=== PATIENT | male | born 1965 | race Asian ===

== ENCOUNTER 2020-10-18 23:53 | Inpatient (IN) | payer OTHER ==
[2020-10-19] MEDS ORDERED: LACTATED RINGERS SOLUTION 1000 ML INFUS.BAG IV ONE (01:19)
[2020-10-19 02:01] LABS: POTASSIUM 3.9 mmol/L (3.5-5.1)
[2020-10-19 02:03] LABS: BLOOD UREA NITROGEN 11.8 mg/dL (7-18); CALCIUM 8.4 mg/dL (8.5-10.1); CO2 28 mmol/L (21-32)
[2020-10-19 02:05] LABS: GLUCOSE,RANDOM 262 mg/dL (74-106)
[2020-10-19 02:06] LABS: BILIRUBIN,DIRECT 0.2 mg/dL (0.0-0.2); CREATININE 0.9 mg/dL (0.55-1.3); SGOT/AST 33 U/L (15-37); SGPT/ALT 38 U/L (13-61)
[2020-10-19 02:08] LABS: BILIRUBIN,TOTAL 0.5 mg/dL (0.2-1)
[2020-10-19 02:09] LABS: ALK PHOS 63 U/L (45-117)
[2020-10-19 02:11] LABS: LDH 446 U/L (87-246)
[2020-10-19 02:19] LABS: INR 1.18 (0.83-1.09); PROTHROMBIN TIME (PATIENT) 14.4 SEC (9.7-13.0)
[2020-10-19 02:21] LABS: ACTIVATED PTT 31.6 SECONDS (25.2-36.5)
[2020-10-19 02:23] LABS: ANION GAP 6 MMOL/L (8-16); CHLORIDE 102 mmol/L (98-107); SODIUM 136 mmol/L (136-145)
[2020-10-19] MEDS ORDERED: DEXAMETHASONE SOD PHOSPHATE 4 MG/1 ML VIAL IVPUSH ONE (02:30)
[2020-10-19] MEDS ORDERED: DEXAMETHASONE SOD PHOSPHATE 10 MG/1 ML VIAL ONE (02:47)
[2020-10-19] MEDS ORDERED: LORazepam 2 MG/ML SDV VIAL IVPUSH ONE (03:58)
[2020-10-19] MEDS ORDERED: LORazepam 2 MG/ML SDV VIAL ONE (04:15)
[2020-10-19] MEDS: guaiFENesin/D-M SUGAR-FREE/ACLHOL-FREE 118 ML BOTTLE PO SCH ×5 (04:47→21:01)
[2020-10-19] MEDS: LACTATED RINGERS SOLUTION 1,000 ML/1,000 ML INFUS.BAG IV SCH ×2 (04:52→19:13)
[2020-10-19] MEDS ORDERED: INSULIN SLIDING SCALE (NOVOLOG) 1 VIAL SQ SCH (07:00)
[2020-10-19 08:02] LABS: BASO % 0.6 % (0-2.0); HEMATOCRIT 38.3 % (35.4-49); HEMOGLOBIN 13.3 GM/dL (11.7-16.9); LYMPH % 7.6 % (8-40); MCH 29.2 pg (25.7-33.7); MCHC 34.8 g/dl (32.0-35.9); MEAN CELL VOLUME 83.8 fl (80-96); MEAN PLT VOLUME 8.3 fl (7.5-11.1); MONO % 3.5 % (3.8-10.2); NEUT % 88.3 % (42.8-82.8); PLATELET COUNT 282 K/MM3 (134-434); RBC 4.58 M/mm3 (4.00-5.60); RDW 12.6 % (11.9-15.9); WHITE BLOOD COUNT 8.2 K/mm3 (4.0-10.0)
[2020-10-19 08:19] LABS: HEMATOCRIT 41.9 % (35.4-49); LYMPH % 10.7 % (8-40); MCH 28.6 pg (25.7-33.7); MCHC 33.5 g/dl (32.0-35.9); MEAN CELL VOLUME 85.4 fl (80-96); MEAN PLT VOLUME 8.6 fl (7.5-11.1); MONO % 6.4 % (3.8-10.2); NEUT % 82.5 % (42.8-82.8); PLATELET COUNT 281 K/MM3 (134-434); RDW 12.8 % (11.9-15.9); WHITE BLOOD COUNT 8.5 K/mm3 (4.0-10.0)
[2020-10-19 08:20] LABS: BASO % 0.4 % (0-2.0)
[2020-10-19 08:21] LABS: POTASSIUM 3.8 mmol/L (3.5-5.1)
[2020-10-19 08:24] LABS: ALBUMIN 2.8 g/dl (3.4-5.0); BLOOD UREA NITROGEN 11.4 mg/dL (7-18); CALCIUM 8.1 mg/dL (8.5-10.1); MAGNESIUM 1.8 mg/dL (1.8-2.4)
[2020-10-19 08:28] LABS: CREATININE 0.7 mg/dL (0.55-1.3); PHOSPHOROUS 2.6 mg/dL (2.5-4.9)
[2020-10-19 08:29] LABS: BILIRUBIN,TOTAL 0.6 mg/dL (0.2-1); TOT PROT 6.5 g/dl (6.4-8.2)
[2020-10-19] MEDS ORDERED: ASCORBIC ACID 500 MG TABLET (FP) ONE (09:37)
[2020-10-19] MEDS ORDERED: ZINC SULFATE 220 MG CAPSULE (FP) ONE (09:37)
[2020-10-19] MEDS ORDERED: DEXAMETHASONE SOD PHOSPHATE 4 MG/1 ML VIAL ONE (09:37)
[2020-10-19] MEDS ORDERED: amLODIPine BESYLATE 5 MG TABLET (FP) ONE (09:37)
[2020-10-19] MEDS ORDERED: FAMOTIDINE 20 MG TABLET ONE (09:37)
[2020-10-19] MEDS ORDERED: metoPROLOL SUCCINATE 25 MG TAB.SR.24H (FP) ONE (09:38)
[2020-10-19] MEDS ORDERED: LISINOPRIL 5 MG TABLET ONE (09:38)
[2020-10-19] MEDS ORDERED: ENOXAPARIN NA (PORCINE) 40 MG/0.4 ML DISP.SYRIN SQ ONE (09:38)
[2020-10-19] MEDS: INSULIN (LEVEMIR) 100 UNITS/ML UNITS SQ SCH ×2 (09:46→21:16)
[2020-10-19] MEDS: ZINC SULFATE 220 MG CAPSULE (FP) PO SCH (09:47)
[2020-10-19] MEDS: LISINOPRIL 5 MG TABLET PO SCH (09:47)
[2020-10-19] MEDS: FAMOTIDINE 20 MG TABLET PO SCH (09:47)
[2020-10-19] MEDS: ASCORBIC ACID 500 MG TABLET (FP) PO SCH (09:47)
[2020-10-19] MEDS: metoPROLOL SUCCINATE 25 MG TAB.SR.24H (FP) PO SCH (09:47)
[2020-10-19] MEDS: amLODIPine BESYLATE 5 MG TABLET (FP) PO SCH (09:47)
[2020-10-19] MEDS ORDERED: ENOXAPARIN NA (PORCINE) 40 MG/0.4 ML DISP.SYRIN SQ SCH ×2 (10:00→22:00)
[2020-10-19] MEDS ORDERED: DEXAMETHASONE 4 MG TABLET (FP) PO SCH (10:00)
[2020-10-19] MEDS: INSULIN SLIDING SCALE (NOVOLOG) 1 VIAL SQ SCH ×3 (11:48→21:17)
[2020-10-19] MEDS: BUDESONIDE/FORMETEROL FUMARATE 160/4.5 mcg INHALER IH SCH ×2 (14:10→22:34)
[2020-10-19] MEDS ORDERED: guaiFENesin/D-METHORPHAN HB 10 ML UNIT-DOSE CUPS PO PRN (14:51)
[2020-10-19 16:02] VITALS: BMI 31.4
[2020-10-19] MEDS: ALBUTEROL SO4 HFA INHALER IH SCH ×2 (16:26→21:07)
[2020-10-19 17:15] LABS: ARTERIAL BLD GAS O2 SATURATION 95.6 mmHg (95-98); ARTERIAL BLOOD GAS BASE EXCESS -0.4 mmol/L (-2-2); ARTERIAL BLOOD GAS PO2 74.2 mmHg (80-100); ARTERIAL BLOOD GAS pH 7.444 (7.350-7.450)
[2020-10-19 17:16] LABS: ALLENS TEST POSITIVE
[2020-10-19] MEDS ORDERED: PT OWN MED DRAWER 7, Y5N ONE ×2 (17:29→22:00)
[2020-10-19] MEDS ORDERED: INSULIN (NOVOLOG) ASPART 100 UNITS/ML 10ML VIAL ONE (18:30)
[2020-10-19] MEDS ORDERED: MELATONIN 5 MG TABLETS PO ONE (20:50)
[2020-10-19] MEDS ORDERED: BENZOCAINE/MENTH/CETYLPYRD CL 1 EACH LOZENGE MM ONE (20:52)
[2020-10-19] MEDS: ATORVASTATIN CA 20 MG TABLET (FP) PO SCH (21:10)
[2020-10-20] MEDS: guaiFENesin/D-M SUGAR-FREE/ACLHOL-FREE 118 ML BOTTLE PO SCH ×2 (01:19→03:27)
[2020-10-20] MEDS ORDERED: PT OWN MED DRAWER 7, Y5N ONE ×2 (03:22→09:18)
[2020-10-20] MEDS: BENZOCAINE/MENTH/CETYLPYRD CL 1 EACH LOZENGE MM PRN ×2 (03:36→17:58)
[2020-10-20] MEDS: LACTATED RINGERS SOLUTION 1,000 ML/1,000 ML INFUS.BAG IV SCH (06:16)
[2020-10-20] MEDS: INSULIN SLIDING SCALE (NOVOLOG) 1 VIAL SQ SCH ×4 (06:19→21:20)
[2020-10-20] MEDS: ALBUTEROL SO4 HFA INHALER IH SCH ×4 (09:11→21:22)
[2020-10-20 09:17] LABS: POTASSIUM 3.7 mmol/L (3.5-5.1)
[2020-10-20 09:19] LABS: CALCIUM 8.3 mg/dL (8.5-10.1)
[2020-10-20 09:20] LABS: ALBUMIN 2.6 g/dl (3.4-5.0); BLOOD UREA NITROGEN 15.1 mg/dL (7-18); MAGNESIUM 2.2 mg/dL (1.8-2.4)
[2020-10-20 09:22] LABS: CREATININE 0.7 mg/dL (0.55-1.3)
[2020-10-20 09:23] LABS: PHOSPHOROUS 3.1 mg/dL (2.5-4.9)
[2020-10-20 09:24] LABS: BILIRUBIN,TOTAL 0.4 mg/dL (0.2-1); TOT PROT 6.1 g/dl (6.4-8.2)
[2020-10-20 09:31] LABS: BASO % 0.1 % (0-2.0); HEMATOCRIT 38.8 % (35.4-49); HEMOGLOBIN 13.1 GM/dL (11.7-16.9); LYMPH % 6.7 % (8-40); MCH 28.7 pg (25.7-33.7); MCHC 33.8 g/dl (32.0-35.9); MEAN CELL VOLUME 85.1 fl (80-96); MEAN PLT VOLUME 8.4 fl (7.5-11.1); MONO % 6.4 % (3.8-10.2); NEUT % 86.8 % (42.8-82.8); PLATELET COUNT 327 K/MM3 (134-434); RBC 4.57 M/mm3 (4.00-5.60); RDW 12.9 % (11.9-15.9); WHITE BLOOD COUNT 13.7 K/mm3 (4.0-10.0)
[2020-10-20] MEDS: INSULIN (LEVEMIR) 100 UNITS/ML UNITS SQ SCH ×2 (09:37→21:21)
[2020-10-20] MEDS: metoPROLOL SUCCINATE 25 MG TAB.SR.24H (FP) PO SCH (09:38)
[2020-10-20] MEDS: amLODIPine BESYLATE 5 MG TABLET (FP) PO SCH (09:38)
[2020-10-20] MEDS: DEXAMETHASONE SOD PHOSPHATE 4 MG/1 ML VIAL IVPUSH SCH (09:38)
[2020-10-20] MEDS: LISINOPRIL 5 MG TABLET PO SCH (09:38)
[2020-10-20] MEDS: ASCORBIC ACID 500 MG TABLET (FP) PO SCH (09:38)
[2020-10-20] MEDS: ZINC SULFATE 220 MG CAPSULE (FP) PO SCH (09:38)
[2020-10-20] MEDS: FAMOTIDINE 20 MG TABLET PO SCH (09:38)
[2020-10-20] MEDS: ENOXAPARIN NA (PORCINE) 100 MG/1 ML DISP.SYRIN SQ SCH ×2 (09:38→21:22)
[2020-10-20] MEDS: BUDESONIDE/FORMETEROL FUMARATE 160/4.5 mcg INHALER IH SCH ×2 (09:39→21:37)
[2020-10-20 16:08] LABS: MYCOPLASMA PNEUMONIAE,IG G AB <100 U/mL (0-99); MYCOPLASMA PNEUMONIAE,IGM AB <770 U/mL (0-769)
[2020-10-20] MEDS: ATORVASTATIN CA 20 MG TABLET (FP) PO SCH (21:22)
[2020-10-20] MEDS: guaiFENesin 200 MG/10 ML 10 ML UNIT-DOSE CUPS PO PRN (21:29)
[2020-10-21] MEDS: INSULIN SLIDING SCALE (NOVOLOG) 1 VIAL SQ SCH ×4 (06:00→21:10)
[2020-10-21] MEDS: INSULIN (LEVEMIR) 100 UNITS/ML UNITS SQ SCH ×2 (06:01→21:05)
[2020-10-21 08:26] LABS: BASO % 0.2 % (0-2.0); HEMATOCRIT 39.2 % (35.4-49); HEMOGLOBIN 13.2 GM/dL (11.7-16.9); LYMPH % 12.1 % (8-40); MCH 28.7 pg (25.7-33.7); MCHC 33.8 g/dl (32.0-35.9); MEAN CELL VOLUME 84.9 fl (80-96); MEAN PLT VOLUME 8.2 fl (7.5-11.1); MONO % 6.6 % (3.8-10.2); NEUT % 81.1 % (42.8-82.8); PLATELET COUNT 373 K/MM3 (134-434); RBC 4.61 M/mm3 (4.00-5.60); RDW 12.8 % (11.9-15.9); WHITE BLOOD COUNT 11.1 K/mm3 (4.0-10.0)
[2020-10-21 08:42] LABS: POTASSIUM 3.7 mmol/L (3.5-5.1)
[2020-10-21 08:44] LABS: CALCIUM 8.4 mg/dL (8.5-10.1)
[2020-10-21 08:45] LABS: ALBUMIN 2.6 g/dl (3.4-5.0); BLOOD UREA NITROGEN 18.4 mg/dL (7-18)
[2020-10-21 08:48] LABS: CREATININE 0.7 mg/dL (0.55-1.3)
[2020-10-21 08:49] LABS: BILIRUBIN,TOTAL 0.4 mg/dL (0.2-1)
[2020-10-21] MEDS: ALBUTEROL SO4 HFA INHALER IH SCH ×4 (08:55→21:04)
[2020-10-21] MEDS ORDERED: INSULIN (NOVOLOG) ASPART 100 UNITS/ML 10ML VIAL ONE (10:42)
[2020-10-21] MEDS ORDERED: PT OWN MED DRAWER 7, Y5N ONE (10:44)
[2020-10-21] MEDS: DEXAMETHASONE SOD PHOSPHATE 4 MG/1 ML VIAL IVPUSH SCH (10:51)
[2020-10-21] MEDS: guaiFENesin 200 MG/10 ML 10 ML UNIT-DOSE CUPS PO PRN (10:52)
[2020-10-21] MEDS: LISINOPRIL 5 MG TABLET PO SCH (10:52)
[2020-10-21] MEDS: ZINC SULFATE 220 MG CAPSULE (FP) PO SCH (10:52)
[2020-10-21] MEDS: metoPROLOL SUCCINATE 25 MG TAB.SR.24H (FP) PO SCH (10:52)
[2020-10-21] MEDS: BUDESONIDE/FORMETEROL FUMARATE 160/4.5 mcg INHALER IH SCH ×2 (10:52→21:08)
[2020-10-21] MEDS: FAMOTIDINE 20 MG TABLET PO SCH (10:52)
[2020-10-21] MEDS: amLODIPine BESYLATE 5 MG TABLET (FP) PO SCH (10:52)
[2020-10-21] MEDS: ASCORBIC ACID 500 MG TABLET (FP) PO SCH (10:52)
[2020-10-21] MEDS: ENOXAPARIN NA (PORCINE) 100 MG/1 ML DISP.SYRIN SQ SCH ×2 (11:03→21:09)
[2020-10-21] MEDS ORDERED: guaiFENesin/D-M SUGAR-FREE/ACLHOL-FREE 118 ML BOTTLE PO PRN (12:30)
[2020-10-21] MEDS: ATORVASTATIN CA 20 MG TABLET (FP) PO SCH (21:05)
[2020-10-22] MEDS: INSULIN (LEVEMIR) 100 UNITS/ML UNITS SQ SCH ×3 (06:10→21:42)
[2020-10-22] MEDS: INSULIN SLIDING SCALE (NOVOLOG) 1 VIAL SQ SCH ×4 (06:10→21:07)
[2020-10-22 07:55] LABS: BASO % 0.1 % (0-2.0); HEMATOCRIT 38.8 % (35.4-49); HEMOGLOBIN 13.2 GM/dL (11.7-16.9); LYMPH % 16.5 % (8-40); MEAN CELL VOLUME 85.2 fl (80-96); MEAN PLT VOLUME 8.5 fl (7.5-11.1); MONO % 10.4 % (3.8-10.2); PLATELET COUNT 380 K/MM3 (134-434); RBC 4.55 M/mm3 (4.00-5.60); RDW 12.6 % (11.9-15.9); WHITE BLOOD COUNT 9.3 K/mm3 (4.0-10.0)
[2020-10-22 08:07] LABS: POTASSIUM 3.8 mmol/L (3.5-5.1)
[2020-10-22 08:43] LABS: ALBUMIN 2.7 g/dl (3.4-5.0); BILIRUBIN,TOTAL 0.4 mg/dL (0.2-1); BLOOD UREA NITROGEN 16.9 mg/dL (7-18); CALCIUM 8.1 mg/dL (8.5-10.1); CREATININE 0.6 mg/dL (0.55-1.3); TOT PROT 6.4 g/dl (6.4-8.2)
[2020-10-22] MEDS: ALBUTEROL SO4 HFA INHALER IH SCH ×4 (08:45→21:10)
[2020-10-22] MEDS ORDERED: PT OWN MED DRAWER 7, Y5N ONE (10:09)
[2020-10-22] MEDS: DEXAMETHASONE SOD PHOSPHATE 4 MG/1 ML VIAL IVPUSH SCH (10:14)
[2020-10-22] MEDS: amLODIPine BESYLATE 5 MG TABLET (FP) PO SCH (10:14)
[2020-10-22] MEDS: FAMOTIDINE 20 MG TABLET PO SCH (10:14)
[2020-10-22] MEDS: ASCORBIC ACID 500 MG TABLET (FP) PO SCH (10:14)
[2020-10-22] MEDS: ENOXAPARIN NA (PORCINE) 100 MG/1 ML DISP.SYRIN SQ SCH ×2 (10:14→21:10)
[2020-10-22] MEDS: LISINOPRIL 5 MG TABLET PO SCH (10:14)
[2020-10-22] MEDS: BUDESONIDE/FORMETEROL FUMARATE 160/4.5 mcg INHALER IH SCH ×2 (10:14→21:11)
[2020-10-22] MEDS: ZINC SULFATE 220 MG CAPSULE (FP) PO SCH (10:14)
[2020-10-22] MEDS: metoPROLOL SUCCINATE 25 MG TAB.SR.24H (FP) PO SCH (10:14)
[2020-10-22] MEDS: ATORVASTATIN CA 20 MG TABLET (FP) PO SCH (21:06)
[2020-10-23] MEDS: INSULIN (LEVEMIR) 100 UNITS/ML UNITS SQ SCH ×2 (06:19→22:41)
[2020-10-23] MEDS: INSULIN SLIDING SCALE (NOVOLOG) 1 VIAL SQ SCH ×4 (06:20→22:41)
[2020-10-23] MEDS ORDERED: PT OWN MED DRAWER 7, Y5N ONE (09:15)
[2020-10-23] MEDS: DEXAMETHASONE SOD PHOSPHATE 4 MG/1 ML VIAL IVPUSH SCH (09:25)
[2020-10-23] MEDS: ALBUTEROL SO4 HFA INHALER IH SCH ×4 (09:25→20:00)
[2020-10-23] MEDS: ASCORBIC ACID 500 MG TABLET (FP) PO SCH (09:26)
[2020-10-23] MEDS: ZINC SULFATE 220 MG CAPSULE (FP) PO SCH (09:26)
[2020-10-23] MEDS: amLODIPine BESYLATE 5 MG TABLET (FP) PO SCH (09:26)
[2020-10-23] MEDS: ENOXAPARIN NA (PORCINE) 100 MG/1 ML DISP.SYRIN SQ SCH ×2 (09:26→22:16)
[2020-10-23] MEDS: metoPROLOL SUCCINATE 25 MG TAB.SR.24H (FP) PO SCH (09:26)
[2020-10-23] MEDS: FAMOTIDINE 20 MG TABLET PO SCH (09:26)
[2020-10-23] MEDS: LISINOPRIL 5 MG TABLET PO SCH (09:26)
[2020-10-23] MEDS: BUDESONIDE/FORMETEROL FUMARATE 160/4.5 mcg INHALER IH SCH ×2 (09:26→22:19)
[2020-10-23 09:54] LABS: BASO % 0.2 % (0-2.0); EOS % 0.2 % (0-4.5); HEMATOCRIT 39.8 % (35.4-49); HEMOGLOBIN 13.4 GM/dL (11.7-16.9); LYMPH % 22.5 % (8-40); MCH 28.8 pg (25.7-33.7); MCHC 33.8 g/dl (32.0-35.9); MEAN CELL VOLUME 85.4 fl (80-96); MEAN PLT VOLUME 8.2 fl (7.5-11.1); MONO % 8.9 % (3.8-10.2); NEUT % 68.2 % (42.8-82.8); PLATELET COUNT 434 K/MM3 (134-434); RBC 4.66 M/mm3 (4.00-5.60); RDW 12.5 % (11.9-15.9)
[2020-10-23 10:32] LABS: CALCIUM 8.8 mg/dL (8.5-10.1)
[2020-10-23 10:33] LABS: BLOOD UREA NITROGEN 16.5 mg/dL (7-18)
[2020-10-23 10:36] LABS: CREATININE 0.7 mg/dL (0.55-1.3)
[2020-10-23 10:37] LABS: BILIRUBIN,TOTAL 0.5 mg/dL (0.2-1)
[2020-10-23 10:38] LABS: TOT PROT 6.7 g/dl (6.4-8.2)
[2020-10-23 10:44] LABS: POTASSIUM 4.1 mmol/L (3.5-5.1)
[2020-10-23] MEDS: ATORVASTATIN CA 20 MG TABLET (FP) PO SCH (22:14)
[2020-10-24] MEDS: INSULIN (LEVEMIR) 100 UNITS/ML UNITS SQ SCH ×2 (06:44→22:28)
[2020-10-24] MEDS: INSULIN SLIDING SCALE (NOVOLOG) 1 VIAL SQ SCH ×4 (06:45→22:33)
[2020-10-24] MEDS: ALBUTEROL SO4 HFA INHALER IH SCH ×4 (08:00→22:29)
[2020-10-24] MEDS ORDERED: PT OWN MED DRAWER 7, Y5N ONE (09:23)
[2020-10-24 09:41] LABS: BASO % 0.5 % (0-2.0); EOS % 0.5 % (0-4.5); HEMATOCRIT 40.3 % (35.4-49); HEMOGLOBIN 13.6 GM/dL (11.7-16.9); LYMPH % 26.9 % (8-40); MCH 28.6 pg (25.7-33.7); MCHC 33.7 g/dl (32.0-35.9); MEAN PLT VOLUME 8.4 fl (7.5-11.1); MONO % 9.3 % (3.8-10.2); NEUT % 62.8 % (42.8-82.8); PLATELET COUNT 458 K/MM3 (134-434); RBC 4.73 M/mm3 (4.00-5.60); RDW 12.4 % (11.9-15.9); WHITE BLOOD COUNT 10.1 K/mm3 (4.0-10.0)
[2020-10-24 10:03] LABS: CALCIUM 8.9 mg/dL (8.5-10.1)
[2020-10-24 10:04] LABS: ALBUMIN 3.2 g/dl (3.4-5.0); BLOOD UREA NITROGEN 16.4 mg/dL (7-18); MAGNESIUM 2.3 mg/dL (1.8-2.4)
[2020-10-24 10:06] LABS: CREATININE 0.7 mg/dL (0.55-1.3)
[2020-10-24 10:07] LABS: PHOSPHOROUS 3.2 mg/dL (2.5-4.9)
[2020-10-24 10:08] LABS: BILIRUBIN,TOTAL 0.6 mg/dL (0.2-1)
[2020-10-24] MEDS: DEXAMETHASONE SOD PHOSPHATE 4 MG/1 ML VIAL IVPUSH SCH (10:31)
[2020-10-24] MEDS: ENOXAPARIN NA (PORCINE) 100 MG/1 ML DISP.SYRIN SQ SCH ×2 (10:31→22:28)
[2020-10-24] MEDS: ZINC SULFATE 220 MG CAPSULE (FP) PO SCH (10:31)
[2020-10-24] MEDS: FAMOTIDINE 20 MG TABLET PO SCH (10:32)
[2020-10-24] MEDS: ASCORBIC ACID 500 MG TABLET (FP) PO SCH (10:32)
[2020-10-24] MEDS: amLODIPine BESYLATE 5 MG TABLET (FP) PO SCH (10:32)
[2020-10-24] MEDS: metoPROLOL SUCCINATE 25 MG TAB.SR.24H (FP) PO SCH (10:32)
[2020-10-24] MEDS: BUDESONIDE/FORMETEROL FUMARATE 160/4.5 mcg INHALER IH SCH ×2 (10:32→22:29)
[2020-10-24] MEDS: LISINOPRIL 5 MG TABLET PO SCH (10:32)
[2020-10-24] MEDS ORDERED: INSULIN (NOVOLOG) ASPART 100 UNITS/ML 10ML VIAL ONE (17:49)
[2020-10-24] MEDS: ATORVASTATIN CA 20 MG TABLET (FP) PO SCH (22:28)
[2020-10-25] MEDS: INSULIN SLIDING SCALE (NOVOLOG) 1 VIAL SQ SCH ×3 (06:30→16:31)
[2020-10-25] MEDS: INSULIN (LEVEMIR) 100 UNITS/ML UNITS SQ SCH (06:30)
[2020-10-25 08:49] LABS: BASO % 0.4 % (0-2.0); EOS % 0.5 % (0-4.5); HEMATOCRIT 40.3 % (35.4-49); HEMOGLOBIN 13.9 GM/dL (11.7-16.9); LYMPH % 23.5 % (8-40); MCH 29.3 pg (25.7-33.7); MCHC 34.6 g/dl (32.0-35.9); MEAN CELL VOLUME 84.6 fl (80-96); MEAN PLT VOLUME 7.8 fl (7.5-11.1); MONO % 8.4 % (3.8-10.2); NEUT % 67.2 % (42.8-82.8); PLATELET COUNT 506 K/MM3 (134-434); RBC 4.76 M/mm3 (4.00-5.60); RDW 12.5 % (11.9-15.9); WHITE BLOOD COUNT 10.8 K/mm3 (4.0-10.0)
[2020-10-25] MEDS: ALBUTEROL SO4 HFA INHALER IH SCH ×3 (08:51→16:27)
[2020-10-25 09:09] LABS: POTASSIUM 4.1 mmol/L (3.5-5.1)
[2020-10-25 09:28] LABS: ALBUMIN 3.1 g/dl (3.4-5.0); CALCIUM 9.2 mg/dL (8.5-10.1)
[2020-10-25 09:29] LABS: BLOOD UREA NITROGEN 16.8 mg/dL (7-18); MAGNESIUM 2.3 mg/dL (1.8-2.4)
[2020-10-25 09:32] LABS: CREATININE 0.7 mg/dL (0.55-1.3); PHOSPHOROUS 3.7 mg/dL (2.5-4.9)
[2020-10-25 09:33] LABS: BILIRUBIN,TOTAL 0.6 mg/dL (0.2-1); TOT PROT 6.8 g/dl (6.4-8.2)
[2020-10-25] MEDS ORDERED: PT OWN MED DRAWER 7, Y5N ONE (10:35)
[2020-10-25] MEDS: amLODIPine BESYLATE 5 MG TABLET (FP) PO SCH (10:39)
[2020-10-25] MEDS: ASCORBIC ACID 500 MG TABLET (FP) PO SCH (10:39)
[2020-10-25] MEDS: FAMOTIDINE 20 MG TABLET PO SCH (10:39)
[2020-10-25] MEDS: ZINC SULFATE 220 MG CAPSULE (FP) PO SCH (10:39)
[2020-10-25] MEDS: BUDESONIDE/FORMETEROL FUMARATE 160/4.5 mcg INHALER IH SCH (10:40)
[2020-10-25] MEDS: LISINOPRIL 5 MG TABLET PO SCH (10:40)
[2020-10-25] MEDS: metoPROLOL SUCCINATE 25 MG TAB.SR.24H (FP) PO SCH (10:40)
[2020-10-25] MEDS: DEXAMETHASONE SOD PHOSPHATE 4 MG/1 ML VIAL IVPUSH SCH (10:40)
[2020-10-25] MEDS: ENOXAPARIN NA (PORCINE) 100 MG/1 ML DISP.SYRIN SQ SCH (10:41)
[2020-10-25] MEDS ORDERED: INSULIN (NOVOLOG) ASPART 100 UNITS/ML 10ML VIAL ONE (18:24)
[2020-10-25 21:48] VITALS: BP 146/91; PULSE 79; TEMP 98.4
== END 2020-10-25 19:00 | disposition home or self-care (01) | DRG 137 ==
LOC: JER 23:53 → JERBED 10-19 03:12 → J8W 10-19 15:30
PROVIDERS: ADMIT Hospitalist; ATTEND Internal Medicine
DX: U07.1 COVID-19 (principal); J12.82 Pneumonia due to coronavirus disease 2019; J80 Acute respiratory distress syndrome; I10 Essential (primary) hypertension; E11.9 Type 2 diabetes mellitus without complications; E78.5 Hyperlipidemia, unspecified
CPT/HCPCS: 36415; 36600; 71045-TC-FY; 80053; 82248; 82550; 82553; 82728; 82803; 82962; 83036; 83605; 83615; 83735; 84100; 84484; 85025; 85379; 85610; 85730; 86140; 86738; 86769; 87040; 87804; 87899; 93005; 93010; 94010; 94761; 97116-GP; 97161-GP; 99285-25; C9803; U0003